=== PATIENT | female | born 1955 | race African-American/Black ===

== ENCOUNTER 2016-12-27 18:01 | Emergency (ER) | payer BC ==
[~2016-12-27 18:01] MED LIST: BENZONATATE PO; HCTZ; HYDROCHLOROTHIA25 MG PO; LORTAB 5/500 TA1 TA1 PO; MOBIC PO; NORCO 7.5-3251 EACH PO; PAXIL; PAXIL PO; PHENERGAN; PRILOSEC; PRILOSEC PO; ULTRAM; UNIVASC7.5 MG; ZITHROMAX1 G/PKT PO
== END 2016-12-27 19:18 | disposition home or self-care (01) ==
LOC: CFTX 18:01 → CED 18:01 → CFTX 18:42
DX: J02.0 Streptococcal pharyngitis (principal); I10 Essential (primary) hypertension; Z88.0 Allergy status to penicillin
CPT/HCPCS: 87880; 99283

== ENCOUNTER 2017-01-01 09:32 | Emergency (ER) | payer BC | END 2017-01-01 11:45 | disposition home or self-care (01) | LOC: CED 09:32 | DX: J02.0 Streptococcal pharyngitis (principal); K21.9 Gastro-esophageal reflux disease without esophagitis; I10 Essential (primary) hypertension; J44.9 Chronic obstructive pulmonary disease, unspecified; F41.9 Anxiety disorder, unspecified; F32.9 Major depressive disorder, single episode, unspecified; Z88.8 Allergy status to other drugs, medicaments and biological substances | CPT/HCPCS: 96372; 99283; J0561; J1100 ==